=== PATIENT | female | born 1975 | race Two or more races ===

== ENCOUNTER → 2016-09-25 | Outpatient (CLI) | payer OTHER | END | disposition home or self-care (01) | LOC: CFH 12:41 | PROVIDERS: ATTEND Obstetrics & Gynecology | DX: N60.01 Solitary cyst of right breast (principal); N63 Unspecified lump in breast | CPT/HCPCS: 76642; G0204 ==

== ENCOUNTER → 2017-02-10 | Outpatient (CLI) | payer OTHER ==
[~2017-02-10] MED LIST: FLUT1AER INH; MELO7.5T31 PO
== END | disposition home or self-care (01) ==
LOC: LAB 12:00
PROVIDERS: ATTEND Allergy & Immunology Allergy
DX: R05 Cough (principal)
CPT/HCPCS: 71020

== ENCOUNTER → 2018-01-04 | Outpatient (CLI) | payer OTHER ==
[~2018-01-04] MED LIST changes: +ALBU18HF INH; +CALC-534 PO; +CHOL200024 PO; +MOME110A2 INH; +MONT10TA9 PO; +MULT-709 PO; +PRUNELAX PO; +VITA100C8 PO
[2018-01-04 12:18] LABS: BASOPHILS # (AUTO) 0.05 x10^3/uL (0-0.1); BASOPHILS % (AUTO) 1 % (0-1); EOSINOPHILS # (AUTO) 0.09 x10^3/uL (0-0.4); EOSINOPHILS % (AUTO) 1 % (1-7); LYMPHOCYTES # (AUTO) 1.58 x10^3/uL (1-3.4); LYMPHOCYTES % (AUTO) 21 % (22-44); MD NO; MEAN CORPUSCULAR HGB CONC 34.2 g/dL (32.4-35.8); MEAN CORPUSCULAR VOLUME 90.6 fL (80-100); MEAN PLATELET VOLUME 8.3 fL (7.4-10.4); MICROSCOPIC NOT IND; MONOCYTES # (AUTO) 0.48 x10^3/uL (0.2-0.8); MONOCYTES % (AUTO) 6 % (2-9); NEUTROPHILS # (AUTO) 5.36 x10^3/uL (1.8-6.8); NEUTROPHILS % (AUTO) 71 % (42-75); PLATELET COUNT 272 x10^3/uL (130-400); RED BLOOD COUNT 4.86 x10^6/uL (3.82-5.3); RED CELL DISTRIBUTION WIDTH 13.4 % (9.6-15.2)
[2018-01-04 12:22] LABS: CULTURE INDICATED? NO
== END | disposition home or self-care (01) ==
LOC: STAR 10:29
PROVIDERS: ATTEND Obstetrics & Gynecology Maternal & Fetal Medicine
DX: Z01.818 Encounter for other preprocedural examination (principal); N94.6 Dysmenorrhea, unspecified
CPT/HCPCS: 36415; 81003; 84703; 85025

== ENCOUNTER 2018-01-18 05:48 | Day surgery (SDC) | payer OTHER ==
[~2018-01-18] VITALS: Ht 162.6 cm; Wt 55.0 kg
[2018-01-18] MEDS ORDERED: LACTATED RINGERS 1,000 ML IV SCH (06:24)
[2018-01-18 06:41] VITALS: BP 114/68
[2018-01-18] MEDS ORDERED: FLUORESCEIN SODIUM 500 MG/5 ML ONE (06:57)
[2018-01-18] MEDS ORDERED: BUPIVACAINE/PF-EPI 0.25% 1:200K ONE (06:57)
[2018-01-18] MEDS ORDERED: NEOSPORIN OINT, 15GM ONE (06:57)
[2018-01-18 07:08] LABS: HCG UR SG 1.015 (1.003-1.030)
[2018-01-18] MEDS ORDERED: MIDAZOLAM 1 MG/ML, 2ML ONE ×2 (07:27)
[2018-01-18] MEDS ORDERED: FENTANYL PF 100 MCG/2ML ONE ×2 (07:27→09:40)
[2018-01-18] MEDS ORDERED: ONDANSETRON 2MG/ML, 2ML ONE (07:30)
[2018-01-18] MEDS ORDERED: CEFAZOLIN 1,000 MG ONE (07:30)
[2018-01-18] MEDS ORDERED: NEOSTIGMINE 1 MG/ML, 10ML ONE (07:30)
[2018-01-18] MEDS ORDERED: METOCLOPRAMIDE 5 MG/ML, 2ML ONE (07:30)
[2018-01-18] MEDS ORDERED: ROCURONIUM 10 MG/ML,10ML ONE (07:30)
[2018-01-18] MEDS ORDERED: DEXAMETHASONE 4 MG/ML, 1ML ONE (07:30)
[2018-01-18] MEDS ORDERED: GLYCOPYRROLATE 0.2MG/1ML, 5ML ONE (07:30)
[2018-01-18] MEDS ORDERED: PROPOFOL 10 MG/ML, 20ML ONE (07:30)
[2018-01-18] MEDS ORDERED: OXYcodone 5 MG/5 ML ORAL.SOL UDC PO PRN (08:30)
[2018-01-18] MEDS ORDERED: HYDROmorphone 1 MG/ML, 1ML IV PRN (08:30)
[2018-01-18] MEDS ORDERED: ONDANSETRON 2MG/ML, 2ML IVPush PRN (08:30)
[2018-01-18] MEDS ORDERED: LABETALOL 5MG/ML, 20ML IV PRN (08:30)
[2018-01-18] MEDS ORDERED: FENTANYL PF 100 MCG/2ML IV PRN (08:30)
[2018-01-18] MEDS ORDERED: MIDAZOLAM 1 MG/ML, 2ML IV PRN (08:30)
[2018-01-18] MEDS ORDERED: FUROSEMIDE 20 MG/2 ML ONE (09:14)
[2018-01-18] MEDS ORDERED: MEPERIDINE/PF 50 MG/ML ONE (09:30)
[2018-01-18] MEDS: MEPERIDINE/PF 25MG/0.5ML IVPush PRN ×2 (09:33→10:08)
[2018-01-18] MEDS ORDERED: OXYcodone 5 MG/5 ML ORAL.SOL UDC ONE (09:51)
[2018-01-18] MEDS ORDERED: D5%-LACTATED RINGERS 1,000 ML IV SCH (12:00)
[2018-01-18] MEDS ORDERED: morphine SULFATE 10 MG/ML, 1ML IV PRN (12:00)
[2018-01-18] MEDS ORDERED: KETOROLAC 30 MG/1 ML IV PRN (12:30)
[2018-01-18] MEDS ORDERED: ONDANSETRON 2MG/ML, 2ML IV PRN (12:30)
[2018-01-18] MEDS ORDERED: OXYcodone/APAP 5/325MG TABLET PO PRN (12:30)
[2018-01-18] MEDS ORDERED: SIMETHICONE 80 MG CHEW TAB PO SCH (16:00)
== END 2018-01-18 20:51 | disposition home or self-care (01) ==
LOC: OUT 05:48 → 4NOR 10:51 → OUT 20:51
PROVIDERS: ATTEND Obstetrics & Gynecology Maternal & Fetal Medicine
DX: D25.0 Submucous leiomyoma of uterus (principal); N94.6 Dysmenorrhea, unspecified; G43.909 Migraine, unspecified, not intractable, without status migrainosus; J45.909 Unspecified asthma, uncomplicated; Z88.8 Allergy status to other drugs, medicaments and biological substances
CPT/HCPCS: 36415; 58552; 81025; 85014; 85018; 88307; J0690; J1100; J2175; J2250; J2405; J2704; J2710; J2765; J3010; J3490; J7120; G0378; J1940

== ENCOUNTER 2018-03-15 11:17 | Emergency (ER) | payer OTHER ==
[~2018-03-15] VITALS: Ht 162.6 cm; Wt 55.3 kg
[2018-03-15 12:04] VITALS: BP 114/71
--- NOTE | 2018-03-15 13:17 | NUR ---
PA AT BEDSIDE TO UPDATE PT AND FAMILY ON POC
== END 2018-03-15 13:28 | disposition home or self-care (01) ==
LOC: ED 13:03
DX: J06.9 Acute upper respiratory infection, unspecified (principal); J45.909 Unspecified asthma, uncomplicated; Z79.82 Long term (current) use of aspirin
CPT/HCPCS: 71046; 99283

== ENCOUNTER → 2018-06-02 | Outpatient (CLI) | payer OTHER | END | disposition home or self-care (01) | LOC: RAD 12:06 | PROVIDERS: ATTEND Allergy & Immunology Allergy | DX: R05 Cough (principal) | CPT/HCPCS: 71046 ==

== ENCOUNTER → 2018-07-16 | Outpatient (CLI) | payer OTHER | END | disposition home or self-care (01) | LOC: CFH 10:06 | PROVIDERS: ATTEND Allergy & Immunology Allergy | DX: R06.00 Dyspnea, unspecified (principal) | CPT/HCPCS: 71250 ==